=== PATIENT | male | born 1935 | race Caucasian/White ===

== ENCOUNTER 2019-06-01 12:09 | Inpatient (IN) | payer MEDICARE, MEDICAID ==
[~2019-06-01] VITALS: Ht 182.9 cm; Wt 75.3 kg
--- NOTE | 2019-06-01 12:20 | NUR ---
Urine sample sent to lab. Patient is resting comfortably now on gurney with eyes closed. Extra warm blankets on. Occasional screaming was heard from patient on arrival to ER with history of aggressive behaviour per telephone report from patient's caregivers.
[2019-06-01] MEDS ORDERED: THIA100T13 PO (12:40)
[2019-06-01] MEDS ORDERED: MAG30ORA PO (12:40)
[2019-06-01] MEDS ORDERED: TRAM50TA2 PO (12:40)
[2019-06-01] MEDS ORDERED: MELA3TAB63 PO (12:40)
[2019-06-01] MEDS ORDERED: QUET25TA PO (12:40)
[2019-06-01] MEDS ORDERED: ACET-2605 PO (12:40)
[2019-06-01] MEDS ORDERED: OMEP1PAC5 PO (12:40)
[2019-06-01] MEDS ORDERED: TIOT18CA3 IH (12:40)
[2019-06-01] MEDS ORDERED: ACET-2154 PO (12:40)
[2019-06-01] MEDS ORDERED: DONE5TAB7 PO (12:40)
[2019-06-01] MEDS ORDERED: MULT-213 PO (12:40)
[2019-06-01] MEDS ORDERED: AMLO2.5T2 PO (12:40)
[2019-06-01] MEDS ORDERED: TAMS-3 PO (12:40)
[2019-06-01] MEDS ORDERED: ATOR40TA PO (12:40)
--- NOTE | 2019-06-01 12:54 | NUR ---
Patient walked to nurses' station and attempted to hit the staff twice after redirection & repeated reminders to go back to his room. Patient was escorted back to his room. Lunch tray@bedside.
--- NOTE | 2019-06-01 13:10 | NUR ---
Patient is now eating hot lunch tray with very good appetite, for medical clearance@this time.
--- NOTE | 2019-06-01 13:36 | NUR ---
Medically cleared by Dr Medina. Psych eval requested.
--- NOTE | 2019-06-01 15:19 | NUR ---
Will Ascencio is here & evaluating the patient.
[2019-06-01 16:24] VITALS: BP 121/71
[2019-06-01] MEDS ORDERED: TEMAZEPAM 7.5 MG CAPSULE PO PRN (16:30)
[2019-06-01] MEDS ORDERED: BLOOD SUGAR DIAGNOSTIC 1 EACH STRIP VI ONE (16:30)
[2019-06-01] MEDS ORDERED: MAGNESIUM HYDROXIDE 30 ML LIQUID UDC PO PRN (16:30)
[2019-06-01] MEDS ORDERED: CLONAZEPAM 0.5 MG TABLET PO PRN (16:30)
--- NOTE | 2019-06-01 19:00 | NUR ---
1615 Received patient from ER via wheelchair alert and ox1, not in any form of distress, on room air. Patient was placed on 5150 for danger to others and gravely disabled, patient aggressive in the group home. Kayden check done; noted with open wound on left heel. Patient confused and unable to give any information. Epic MD and psych manager transfusion notified by charge nurse to reconcile meds.
[2019-06-01 20:24] VITALS: BP 100/56
[2019-06-01] MEDS: ACETAMINOPHEN 325 MG TABLET PO PRN (20:34)
--- NOTE | 2019-06-01 22:00 | NUR ---
received to care, sitting at nurses station, appearing confused, and labile. intrusive at times. becomes verbally hostile, and attempting to strike staff, when redirected. PRN bozena was given at 2033. pt remained labile, but did calm down considerably, within an hour. as of 2199, he appears to be asleep. no distress noted. will continue to monitor closely.
[2019-06-02] MEDS ORDERED: MAG HYDROX/AL HYDROX/SIMETH 30 ML LIQUID UDC PO PRN
--- NOTE | 2019-06-02 06:00 | NUR ---
slept 4 hours. remains labile. needs frequent redirection. currently lying in bed.
[2019-06-02 07:30] VITALS: BP 131/76
[2019-06-02] MEDS ORDERED: OMEPRAZOLE PO SCH (09:00)
[2019-06-02] MEDS ORDERED: SODIUM BICARBONATE PO SCH (09:00)
[2019-06-02] MEDS ORDERED: Medication Not On Formulary EA (Multivitamins W-Minerals (Multivitamin With Minerals) 1 PO SCH (09:00)
[2019-06-02] MEDS ORDERED: [UNRECOGNIZED DRUG - OTHER] PO SCH (09:00)
[2019-06-02] MEDS: THIAMINE HCL 100 MG TABLET PO SCH (09:15)
[2019-06-02] MEDS: AMLODIPINE 2.5 MG TABLET PO SCH (10:23)
[2019-06-02] MEDS: MULTIVIT, IRON, MIN NO. 8, FA TABLET PO SCH (10:23)
[2019-06-02] MEDS: PANTOPRAZOLE SODIUM 40 MG TABLET.DR PO SCH (10:47)
[2019-06-02] MEDS: DIVALPROEX SPRINKLE 125 MG CAP.SPRINK PO SCH ×2 (13:01→20:16)
[2019-06-02 15:04] VITALS: BP 119/53
[2019-06-02] MEDS: TRAMADOL HCL 50 MG TABLET PO PRN (15:26)
--- NOTE | 2019-06-02 16:00 | NUR ---
Gps/4Th Grade Teacher- Pacing back and forth the hallway, pt. too focus on his left heel pain, site cleansed with NS, kept dry, xeroform gauze applied, covered with mefilex , 4x4s . Lower ext. elevated , prn Ultram 50 mg po was administered, kept up on his quinn-chair
[2019-06-02] MEDS: ACETAMINOPHEN 325 MG TABLET PO PRN (16:29)
[2019-06-02] MEDS: TAMSULOSIN HCL 0.4 MG CAP.SR.24H PO SCH (20:17)
[2019-06-02] MEDS: ATORVASTATIN 40 MG TABLET PO SCH (20:17)
[2019-06-02] MEDS: DONEPEZIL 5 MG TABLET PO SCH (20:17)
[2019-06-02] MEDS: QUETIAPINE FUMARATE 25 MG TABLET PO SCH (20:17)
[2019-06-02] MEDS ORDERED: MELATONIN 3 MG TABLET PO SCH (21:00)
[2019-06-02 23:17] VITALS: BP 136/85
--- NOTE | 2019-06-03 05:36 | NUR ---
GPS:Remain confused, and labile. intrusive at times. ambulate to bathroom.no distress noted. will continue to monitor closely for safety.
--- NOTE | 2019-06-03 05:49 | NUR ---
slept 6.45 hrs through the night.
[2019-06-03] MEDS: PANTOPRAZOLE SODIUM 40 MG TABLET.DR PO SCH (06:03)
[2019-06-03 07:30] VITALS: BP 109/68
[2019-06-03] MEDS: DIVALPROEX SPRINKLE 125 MG CAP.SPRINK PO SCH ×2 (08:18→20:15)
[2019-06-03] MEDS: THIAMINE HCL 100 MG TABLET PO SCH (08:18)
[2019-06-03] MEDS: MULTIVIT, IRON, MIN NO. 8, FA TABLET PO SCH (08:18)
[2019-06-03] MEDS: AMLODIPINE 2.5 MG TABLET PO SCH (08:28)
[2019-06-03] MEDS: ACETAMINOPHEN 325 MG TABLET PO PRN (11:30)
--- NOTE | 2019-06-03 12:00 | NUR ---
Gps/Drop Forger- Walking in and out of his room limping c/o > pain to his left heel, wound to left heel, cleansed with NS xeroform gauze applied, , covered with mepilex to put padding on hhis heel, wrap with miguel a gauze.Instructed patient to keep his left heel elevated, prn tyleno 650 mg was given po. Will continue to monitor for any relief from pain.
[2019-06-03] MEDS: MAG HYDROX/AL HYDROX/SIMETH 30 ML LIQUID UDC PO PRN (12:04)
[2019-06-03] MEDS: LORAZEPAM 1 MG TABLET PO PRN (13:08)
--- NOTE | 2019-06-03 15:35 | NUR ---
Gps/Vice President Global Digital Marketing-Carolin [employer]ap[employer] SYSTEM[employer] APPLICATIONS PROGRAMMING LEAD was in to see patient, informed of the wound on his left heel, was informed of of tx that was done, needed Wound care consultation. Left heel floated when in bed.
[2019-06-03 16:00] VITALS: BP 101/57
[2019-06-03] MEDS: TRAMADOL HCL 50 MG TABLET PO PRN (16:37)
--- NOTE | 2019-06-03 18:00 | NUR ---
Gps/Sewing Machines Salesperson- Trying to collect urine specimen , unable claimed just been to the bathroom to void.
[2019-06-03] MEDS: TAMSULOSIN HCL 0.4 MG CAP.SR.24H PO SCH (20:15)
[2019-06-03] MEDS: ATORVASTATIN 40 MG TABLET PO SCH (20:15)
[2019-06-03] MEDS: QUETIAPINE FUMARATE 25 MG TABLET PO SCH (20:15)
[2019-06-03] MEDS: DONEPEZIL 5 MG TABLET PO SCH (20:15)
[2019-06-03 20:58] VITALS: BP 122/67
[2019-06-03 21:49] LABS: *BILIRUBIN,URIN NEGATIVE (NEGATIVE); *BLOOD, URINE NEGATIVE (NEGATIVE); *CLARITY,URINE CLEAR (CLEAR); *COLOR,URINE YELLOW (YELLOW); *KETONES,URINE NEGATIVE (NEGATIVE); *UROBILINOGEN,URINE 0.2 E.U./dl (NORMAL); LEUKOCYTE ESTERASE ,URINE TRACE (NEGATIVE); NITRITE, URINE NEGATIVE (NEGATIVE); UGLUCOSE NEGATIVE (NEGATIVE)
[2019-06-03 21:56] LABS: BACTERIA,URINE NONE SEEN /HPF (NONE SEEN); RBC,URINE 0-3 /HPF (0-3); SQUAMOUS EPITHELIAL CELL,UR FEW /HPF (NONE SEEN)
--- NOTE | 2019-06-04 03:23 | NUR ---
SHREE spoke with Ijeoma information systems director from [facility], ([phone]), who expressed would like to speak to Dr. Dean in regards to pts history. SHREE signed a consent form with pt and nurse.
--- NOTE | 2019-06-04 04:54 | NUR ---
GPS: Remain calm and cooperative with nursing care. compliant with all his medications. no agressive behavior noted, continue plan of care.
[2019-06-04] MEDS: PANTOPRAZOLE SODIUM 40 MG TABLET.DR PO SCH (06:07)
--- NOTE | 2019-06-04 06:21 | NUR ---
GPS: Slept 7.15 hrs through the night.
[2019-06-04 07:30] VITALS: BP 119/66
[2019-06-04 08:24] LABS: BASOPHILS % (AUTO) 0.7 % (0.0-2.0); EOSINOPHILS # (AUTO) 0.3 K/uL (0.0-0.7); EOSINOPHILS % (AUTO) 7.1 % (0.0-7.0); HEMATOCRIT 41.3 % (36.7-47.1); HEMOGLOBIN 13.9 g/dL (12.5-16.3); LYMPHOCYTES % (AUTO) 20.2 % (20.5-51.5); MEAN CORPUSCULAR HEMOGLOBIN 30.9 uug (23.8-33.4); MEAN CORPUSCULAR HGB CONC 34 g/dL (32.5-36.3); MONOCYTES # (AUTO) 0.4 K/uL (2.0-10.0); MONOCYTES % (AUTO) 7.9 % (0.0-11.0); NEUTROPHILS # (AUTO) 3.1 K/uL (1.8-8.9); NEUTROPHILS % (AUTO) 64.1 % (38.5-71.5); PLATELET COUNT (AUTO) 201 K/uL (152-348); RED BLOOD CELL COUNT(AUTO) 4.49 MIL/uL (4.06-5.63); WHITE BLOOD COUNT (AUTO) 4.8 K/uL (3.6-10.2)
[2019-06-04 08:26] LABS: CREATININE 0.8 mg/dL (0.6-1.3)
[2019-06-04] MEDS: DIVALPROEX SPRINKLE 125 MG CAP.SPRINK PO SCH ×2 (08:35→20:03)
[2019-06-04] MEDS: THIAMINE HCL 100 MG TABLET PO SCH (08:35)
[2019-06-04] MEDS: TRAMADOL HCL 50 MG TABLET PO PRN ×2 (08:36→19:28)
[2019-06-04] MEDS: MULTIVIT, IRON, MIN NO. 8, FA TABLET PO SCH (08:36)
[2019-06-04] MEDS: AMLODIPINE 2.5 MG TABLET PO SCH (08:37)
--- NOTE | 2019-06-04 11:10 | NUR ---
WOUND CARE CONSULT: PT PRESENTS WITH LEFT HEEL WOUND, PRESENT ON ADMISSION. THICKENED NAILS NOTED ALSO. PT REFUSED FULL SKIN ASSESSMENT. PT IS AMBULATORY AND CONTINENT PER NURSING STAFF. RECOMMEND DPM CONSULT. DR ALEJANDRE NOTIFIED OF DPM CONSULT REQUEST. WILL SEE PRN. REAGAN IN AGREEMENT WITH PLAN OF CARE. Addendum: 06/04/19 at 1112 by LEE SPIVEY RN Amended: Links added.
--- NOTE | 2019-06-04 13:11 | NUR ---
Family Contact: SW called pts daughter, Shania Cote, ([phone]) to gather collateral information about the pt but was unavailable. SW left pts daughter Shania Cote to call back.
[2019-06-04] MEDS: ACETAMINOPHEN 325 MG TABLET PO PRN (13:14)
--- NOTE | 2019-06-04 13:27 | NUR ---
Discharge Plan: SHREE called [facility] initially where pt was staying at the confirm once discharge pt will go back. SHREE spoke to [facility], ([phone]) she stated that pt will be located to [facility] ([phone]), which [facility]. SHREE called [facility] ([phone]) and spoke to Catie ([phone]) who confirmed that once pt is discharged they will take pt.
--- NOTE | 2019-06-04 13:32 | NUR ---
Pts daughter Shania Cote, ([phone]) called back to gather collateral. During psychosocial assessment, SW and pts daughter discussed pts discharge plan. Pts daughterKera was not informed by [facility] that pt would be transferred to [place] and was upset.
[2019-06-04] MEDS: LORAZEPAM 1 MG TABLET PO PRN ×2 (13:54→22:09)
[2019-06-04] MEDS: MAG HYDROX/AL HYDROX/SIMETH 30 ML LIQUID UDC PO PRN (14:45)
[2019-06-04 15:12] VITALS: BP 103/60
--- NOTE | 2019-06-04 15:28 | NUR ---
INITIAL DISCHARGE: Pt currently resides at [facility] [address] [place] [address]; ([phone]). SHREE spoke with pts daughter, Kera ([phone]) who wants pt to return to [facility]. SHREE spoke with Heide ([phone]) from [facility] who addressed that pt will be located to [facility] ([phone]), which is a affiliated [employer]. Per pts, daughter Kera requested [facility] to admin pt back to [facility]. SHREE will work with the pt and the MD regarding appropriate discharge planning. SHREE will form a safe and proper discharge.
[2019-06-04 20:00] VITALS: BP 112/72
[2019-06-04] MEDS: ATORVASTATIN 40 MG TABLET PO SCH (20:02)
[2019-06-04] MEDS: QUETIAPINE FUMARATE 25 MG TABLET PO SCH (20:03)
[2019-06-04] MEDS: TAMSULOSIN HCL 0.4 MG CAP.SR.24H PO SCH (20:03)
[2019-06-04] MEDS: DONEPEZIL 5 MG TABLET PO SCH (20:03)
[2019-06-05] MEDS: PANTOPRAZOLE SODIUM 40 MG TABLET.DR PO SCH (06:19)
[2019-06-05 08:30] VITALS: BP 101/53
[2019-06-05] MEDS: AMLODIPINE 2.5 MG TABLET PO SCH (08:51)
[2019-06-05] MEDS: MULTIVIT, IRON, MIN NO. 8, FA TABLET PO SCH (08:51)
[2019-06-05] MEDS: THIAMINE HCL 100 MG TABLET PO SCH (08:51)
[2019-06-05] MEDS: DIVALPROEX SPRINKLE 125 MG CAP.SPRINK PO SCH ×3 (09:01→16:30)
[2019-06-05] MEDS: MAG HYDROX/AL HYDROX/SIMETH 30 ML LIQUID UDC PO PRN (12:35)
[2019-06-05] MEDS: TRAMADOL HCL 50 MG TABLET PO PRN (12:36)
--- NOTE | 2019-06-05 13:21 | NUR ---
GPS: Nursing Notes: Thought Disorder: Patient is awake and responding to his name, poor anger management, forgetful, unable to find his room by himself, A/Ox1, anxious affect, stated "I am afraid...I don't know... I am not safe here..", "I need to go, did you see my car's moe..", redirected and reoriented during shift, get easily irritable when redirected, verbal abusive toward staff, "Fuck you.. I can punch you on the face...", unable to formulate a viable plan for self care, unkempt appearance, continue to monitor for safety, continue with treatment plan.
[2019-06-05 15:06] VITALS: BP 116/60
[2019-06-05] MEDS: ACETAMINOPHEN 325 MG TABLET PO PRN (16:30)
[2019-06-05 20:11] VITALS: BP 113/55
[2019-06-05] MEDS: QUETIAPINE FUMARATE 25 MG TABLET PO SCH (20:27)
[2019-06-05] MEDS: TAMSULOSIN HCL 0.4 MG CAP.SR.24H PO SCH (20:27)
[2019-06-05] MEDS: ATORVASTATIN 40 MG TABLET PO SCH (20:27)
[2019-06-05] MEDS: DONEPEZIL 5 MG TABLET PO SCH (20:27)
[2019-06-06] MEDS: TRAMADOL HCL 50 MG TABLET PO PRN ×2 (04:17→15:55)
[2019-06-06] MEDS: PANTOPRAZOLE SODIUM 40 MG TABLET.DR PO SCH (06:00)
[2019-06-06 07:30] VITALS: BP 102/54
[2019-06-06] MEDS: AMLODIPINE 2.5 MG TABLET PO SCH (09:00)
[2019-06-06] MEDS: THIAMINE HCL 100 MG TABLET PO SCH (09:51)
[2019-06-06] MEDS: DIVALPROEX SPRINKLE 125 MG CAP.SPRINK PO SCH ×3 (09:51→17:27)
[2019-06-06] MEDS: MULTIVIT, IRON, MIN NO. 8, FA TABLET PO SCH (09:51)
[2019-06-06] MEDS: ACETAMINOPHEN 325 MG TABLET PO PRN (11:01)
[2019-06-06] MEDS: MAG HYDROX/AL HYDROX/SIMETH 30 ML LIQUID UDC PO PRN (14:52)
[2019-06-06] MEDS: LORAZEPAM 1 MG TABLET PO PRN (15:20)
[2019-06-06 16:00] VITALS: BP 127/70
[2019-06-06] MEDS: ATORVASTATIN 40 MG TABLET PO SCH (20:02)
[2019-06-06] MEDS: DONEPEZIL 5 MG TABLET PO SCH (20:02)
[2019-06-06] MEDS: TAMSULOSIN HCL 0.4 MG CAP.SR.24H PO SCH (20:02)
[2019-06-06 20:21] VITALS: BP 119/68
[2019-06-06] MEDS ORDERED: QUETIAPINE FUMARATE 25 MG TABLET PO SCH (21:00)
--- NOTE | 2019-06-07 05:39 | NUR ---
Patient slept 7 hours last night and was only up once to turn on the room light. Patient refused to sleep with light off. Patient was compliant with medications and needed orientation with each encounter. Patient in bed asleep at this time. No distress noted.
[2019-06-07] MEDS: PANTOPRAZOLE SODIUM 40 MG TABLET.DR PO SCH (06:05)
[2019-06-07 07:30] VITALS: BP 99/52
[2019-06-07] MEDS: AMLODIPINE 2.5 MG TABLET PO SCH (09:00)
[2019-06-07] MEDS: THIAMINE HCL 100 MG TABLET PO SCH (09:08)
[2019-06-07] MEDS: DIVALPROEX SPRINKLE 125 MG CAP.SPRINK PO SCH ×3 (09:08→16:43)
[2019-06-07] MEDS: MULTIVIT, IRON, MIN NO. 8, FA TABLET PO SCH (09:09)
--- NOTE | 2019-06-07 10:03 | NUR ---
Family Contact: SW contacted pts daughterKera ([phone]) to follow up with pts care. SW left pts daughter a voicemail.
--- NOTE | 2019-06-07 14:19 | NUR ---
Gps/Marine Painter Left heel with mepilex intact, heels floated when in bed.
--- NOTE | 2019-06-07 14:54 | NUR ---
Family Contact: SW spoke to pts daughter, Kera ([phone]) and informed her that pt will be discharged tomorrow 06/08/19 at 12pm back to his facility [facility].
--- NOTE | 2019-06-07 14:55 | NUR ---
Clinicials: SHREE faxed pts clinicials to [facility] to [facility], (P:[phone]), (F:[phone]). [facility], accepted pt back to facility.
[2019-06-07 16:00] VITALS: BP 138/80
--- NOTE | 2019-06-07 17:00 | NUR ---
Gps/Hat Body Inspector- Patient always confused, trying to find his room, constant reorientation given. Safety reviewed and emphasized. Lower ext. kept elevated.
[2019-06-07] MEDS: ACETAMINOPHEN 325 MG TABLET PO PRN (17:06)
--- NOTE | 2019-06-07 20:00 | NUR ---
[facility] [place]. Patient is alert/oriented x1 and is complaining of pain to his left ankle and would like medication to alleviate pain. All safety and fall precaution measures are in place. Will continue to monitor.
[2019-06-07] MEDS: ATORVASTATIN 40 MG TABLET PO SCH (20:07)
[2019-06-07] MEDS: DONEPEZIL 5 MG TABLET PO SCH (20:07)
[2019-06-07] MEDS: TAMSULOSIN HCL 0.4 MG CAP.SR.24H PO SCH (20:07)
[2019-06-07] MEDS: TRAMADOL HCL 50 MG TABLET PO PRN (20:09)
[2019-06-07 20:34] VITALS: BP 120/56
[2019-06-07] MEDS ORDERED: QUETIAPINE FUMARATE 25 MG TABLET PO SCH (21:00)
[2019-06-07] MEDS ORDERED: QUETIAPINE FUMARATE 100 MG TABLET PO SCH (21:00)
[2019-06-08] MEDS: PANTOPRAZOLE SODIUM 40 MG TABLET.DR PO SCH (06:09)
--- NOTE | 2019-06-08 06:55 | NUR ---
Patient slept throughout the night for a total of 7.45 hours. Patient's complaint of pain was addressed with prescribed analgesic, with patient expressing relief. Patient was compliant with all aspects of care and medicine regime. All nursing needs were met promptly and patient is warm and dry, resting in bed.
[2019-06-08 07:30] VITALS: BP 115/70
--- NOTE | 2019-06-08 08:18 | NUR ---
Discharge Note: Patient will be discharged to [facility] [address] [facility] [address] via [facility] ambulance at 12PM on 06/08/19. Please arrange transportation. Spoke with nurse Jaeger, ([phone]) at the facility who states to accept patient today. Upon discharge, patient appears to be calm, cooperative and compliant to medication. Patient denies suicidal and homicidal ideation. Pt will be under the medical care of Smt Operator: Dr. Pope and psychiatrist: Dr. Amador from [facility] and will follow-up. Patients Kera gay ([phone]) has been aware and is agreeable with discharge plan. The multidisciplinary exit care form was done, printed, signed, and given to the patient. Patient presents with normal mood and congruent affect during the time of his stay. Addendum: 06/08/19 at 1046 by CHANTALE SWANN Discharge Note: Patient will be discharged to [facility] [address] [place] [address] via ambulance at 12PM on 06/08/19. Spoke with nurse Jaeger, ([phone]) at the facility who states to accept patient today. Upon discharge, patient appears to be calm, cooperative and compliant to medication. Patient denies suicidal and homicidal ideation. Pt will be under the medical care of Smt Operator: Dr. Pope and psychiatrist: Dr. Amador from [facility] and will follow-up. Patients Kera gay ([phone]) has been aware and is agreeable with discharge plan. The multidisciplinary exit care form was done, printed, signed, and given to the patient. Patient presents with normal mood and congruent affect during the time of his stay.
[2019-06-08] MEDS: DIVALPROEX SPRINKLE 125 MG CAP.SPRINK PO SCH ×2 (08:57→12:30)
[2019-06-08] MEDS: MULTIVIT, IRON, MIN NO. 8, FA TABLET PO SCH (08:57)
[2019-06-08] MEDS: THIAMINE HCL 100 MG TABLET PO SCH (08:57)
[2019-06-08 08:58] VITALS: BP 115/70
[2019-06-08] MEDS: AMLODIPINE 2.5 MG TABLET PO SCH (08:58)
--- NOTE | 2019-06-08 11:19 | NUR ---
Gps/Resume Specialist- [facility] was called, report was given to Gloria(MITA). Discharged planning in progress, apple picking supervisor time via ambulance was arranged for 1200 by Charged Mita Sanabria.
--- NOTE | 2019-06-08 12:05 | NUR ---
[facility] AND EXPLAINED THAT PT HAS A MEDICAL NEED FOR AMBULANCE DUE TO NEEDING CONSTANT MONITORING. SOCIAL WORK DIRECTOR NATACHA NOTIFIED AND INFORMED THAT SHE SPOKE TO AMBULANCE NET PROGRAMMER RANJANA AND HE APPROVED.
[2019-06-08] MEDS: LORAZEPAM 1 MG TABLET PO PRN (12:24)
--- NOTE | 2019-06-08 12:36 | NUR ---
Gps/Precision Lathe Operator- Hide And Skin Colerer Juju was in ro check left heel wound. Site was cleansed with NS, covered with mepilex, heel floated. Order for neosporin ksenia obtained from Mattie Warren NP.
[2019-06-08] MEDS ORDERED: NEOMY/BACITRAC/POLYMI OINT 28.35 GM TUBE TOP SCH (12:45)
--- NOTE | 2019-06-08 12:45 | NUR ---
WOUND CARE: PT SEEN FOR RE-ASSESSMENT OF LEFT HEEL WOUND. WOUND IS SMALLER IN SIZE BUT PT STATES IS VERY TENDER. TOPICAL WOUND ORDER WAS RECEIVED FROM ROMARIO MARIN N.P. AND DISCUSSED WITH DR ALEJANDRE. PT TO BE DISCHARGED TODAY. Addendum: 06/08/19 at 1250 by LEE SPIVEY RN Amended: Links added.
[2019-06-08] MEDS: MAG HYDROX/AL HYDROX/SIMETH 30 ML LIQUID UDC PO PRN (13:12)
--- NOTE | 2019-06-08 13:12 | NUR ---
Gps/Automatic Clipper- All belongings given back to patient no signs of any distress.Complained of slightly upset stomach, anxious about discharge, reassured , mylanta 30 ml was given po, verbalized relief of discomfort. Discharged via ambulance, with no further complaints noted
== END 2019-06-08 13:15 | DRG 885 ==
LOC: ER 12:11 → GPS 15:57
PROVIDERS: ADMIT Psychiatry & Neurology Psychiatry; ATTEND Internal Medicine
PROC: 0HBRXZZ Excision of Toe Nail, External Approach (ICD-10-PCS; principal; 2019-06-05)
DX: F20.0 Paranoid schizophrenia (principal); J44.9 Chronic obstructive pulmonary disease, unspecified; L89.621 Pressure ulcer of left heel, stage 1; B35.1 Tinea unguium; F41.9 Anxiety disorder, unspecified; I44.0 Atrioventricular block, first degree; I45.10 Unspecified right bundle-branch block; K21.9 Gastro-esophageal reflux disease without esophagitis; F03.90 Unspecified dementia, unspecified severity, without behavioral disturbance, psychotic disturbance, mood disturbance, and anxiety
CPT/HCPCS: 36415; 71045; 80164; 85025; 87086; 93005; A4663